=== PATIENT | female | born 1940 | race African-American/Black ===

== ENCOUNTER 2024-09-22 06:38 | Emergency (ER) | payer MEDICARE, OTHER ==
[~2024-09-22] VITALS: Ht 170.2 cm; Wt 60.0 kg
[~2024-09-22 06:38] MED LIST: ALEN70TA84 MT; AMLO5TAB88 MT; ASPI-1497 MT; ATEN-177 MT; ATOR10TA MT; FURO-152 MT; GABA-1180 MT; GLIP10TA17 MT; LEVO50TA MT; LOSA-412 MT; MELO-106 MT; METF-414 MT; POTA-81 MT
[2024-09-22 06:40] VITALS: O2SAT 98
[2024-09-22] MEDS: PIPERACILLIN/TAZO 3.375G/50ML 50 ML IV ONE (07:10)
[2024-09-22] MEDS: SODIUM CHLORIDE 0.9% (SEPSIS BOLUS) IV ONE (07:10)
[2024-09-22 07:32] LABS: BASOPHILS % 0.4 % (0.0-2.0); HEMATOCRIT. 31.6 % (36.0-48.0); LYMPHOCYTES % 9.9 % (20.0-50.0); MEAN CORPUSCULAR HEMOGLOBIN 26.1 pg (28.0-32.0); MEAN CORPUSCULAR HGB CONC 31.7 g/dL (31.0-37.0); MEAN CORPUSCULAR VOLUME 82.2 fL (81.0-99.0); MEAN PLATELET VOLUME 8.9 fl (7.4-10.4); MONOCYTES % 4.7 % (2.0-8.0); PLATELET 362 x1000/uL (130-400); RED BLOOD CELL COUNT 3.84 mill/uL (4.2-5.4); RED CELL DISTRIBUTION WIDTH 19.2 % (11.6-14.6); WHITE BLOOD COUNT 21.6 x1000/uL (4.5-11.0)
[2024-09-22 07:42] LABS: CHLORIDE 106 mEq/L (98-107); POTASSIUM 4.2 mEq/L (3.5-5.1); SODIUM 140 mEq/L (136-145)
[2024-09-22 07:43] LABS: CARBON DIOXIDE 26 mEq/L (21-32)
[2024-09-22 07:44] LABS: CALCIUM 8.9 mg/dL (8.7-10.4)
[2024-09-22 07:48] LABS: CREATININE 0.9 mg/dL (0.6-1.0); GLUCOSE 198 mg/dL (70-105)
[2024-09-22 07:49] LABS: TROPONIN I HIGH SENSITIVITY 5 ng/L (3.0-34); UREA NITROGEN BLOOD 15 mg/dL (9-23)
[2024-09-22 07:50] LABS: ALANINE AMINOTRANSFERASE 64 IU/L (10-49); ALBUMIN 3.8 g/dL (3.2-4.8); ASPARTATE AMINOTRANSFERASE 86 IU/L (<34); BILIRUBIN DIRECT 0.4 mg/dL (<=3.0)
[2024-09-22 07:51] LABS: BILIRUBIN TOTAL 1.3 mg/dL (0.1-1.0); PROTEIN TOTAL 6.7 g/dL (6.0-8.3)
[2024-09-22 07:56] LABS: INR 1.1; PROTHROMBIN TIME 12.5 sec (9.6-11.0)
[2024-09-22] MEDS: VANCOMYCIN 1G PREMIX 200 ML IV ONE (08:44)
[2024-09-22 13:32] VITALS: BP 170/80; PULSE 74; RESP 17; TEMP 36.9; O2SAT 99
== END 2024-09-22 14:26 | disposition short-term general hospital (02) ==
LOC: ER 06:38 → EDBEDREQ 12:12 → EDBEDREQTM 12:12 → EDBEDREQSVC 12:12 → ER 14:26
DX: J18.9 Pneumonia, unspecified organism (principal); A41.9 Sepsis, unspecified organism; E11.9 Type 2 diabetes mellitus without complications; E78.5 Hyperlipidemia, unspecified; I10 Essential (primary) hypertension; Z60.2 Problems related to living alone; Z79.1 Long term (current) use of non-steroidal anti-inflammatories (NSAID); Z79.82 Long term (current) use of aspirin; Z79.84 Long term (current) use of oral hypoglycemic drugs; Z79.890 Hormone replacement therapy; Z79.899 Other long term (current) drug therapy; Z88.5 Allergy status to narcotic agent; Z88.8 Allergy status to other drugs, medicaments and biological substances; Z98.890 Other specified postprocedural states; Z20.822 Contact with and (suspected) exposure to COVID-19
CPT/HCPCS: 99291; 96365; 71045; 96367; 96366; 87426; 80076; 80048; 83880; 83605; 85025; 85610; 87420; 87040; 84484; 87804 ×2; 36415; 84145; 93005; J2543; J3370; J7030

== ENCOUNTER 2025-04-20 15:43 | Emergency (ER) | payer OTHER ==
[~2025-04-20] VITALS: Ht 170.2 cm; Wt 60.0 kg
[2025-04-20 15:47] VITALS: TEMP 36.2; O2SAT 94
[2025-04-20] MEDS ORDERED: PROPOFOL 10MG/ML 100ML 100 ML IV SCH (16:00)
[2025-04-20] MEDS ORDERED: ACETAMINOPHEN 650MG/20.3ML UDC NG PRN (16:00)
[2025-04-20] MEDS ORDERED: PIPERACILLIN/TAZO 3.375G/50ML 50 ML IV ONE (16:00)
[2025-04-20] MEDS ORDERED: ACETAMINOPHEN 650MG SUPP PR PRN (16:00)
[2025-04-20] MEDS ORDERED: ETOMIDATE 2MG/ML 10ML VIAL IV ONE (16:00)
[2025-04-20] MEDS ORDERED: ROCURONIUM BROMIDE 10MG/ML VIAL 5ML IV ONE (16:00)
[2025-04-20] MEDS ORDERED: EPINEPHRINE 5 MG in SODIUM CHLORIDE 0.9% 245 ML IV SCH (16:00)
[2025-04-20] MEDS: SODIUM CHLORIDE 0.9% (SEPSIS BOLUS) IV ONE (16:09)
[2025-04-20 16:10] VITALS: RESP 14
[2025-04-20] MEDS: VANCOMYCIN 1G PREMIX 200 ML IV ONE (16:10)
[2025-04-20] MEDS ORDERED: NOREPINEPHRINE 8 MG in DEXT 5% WATER 242 ML IV ONE (16:30)
[2025-04-20] MEDS ORDERED: NOREPINEPHRINE 8MG/250ML PMX 250 ML IV ONE (16:31)
[2025-04-20] MEDS ORDERED: NOREPINEPHRINE 8MG/250ML PMX 250ML IV PRN (16:45)
[2025-04-20] MEDS ORDERED: PHENYLEPHRINE 50MG/250ML PMX IV PRN (16:45)
[2025-04-20] MEDS ORDERED: PHENYLEPHRINE 50 MG in DEXT 5% WATER 245 ML IV SCH (16:45)
[2025-04-20 16:52] VITALS: BP 0/0; PULSE 0; RESP 0; O2SAT 0
[2025-04-20 16:52] LABS: BASOPHILS % 0.6 % (0.0-2.0); EOSINOPHILS % 2.6 % (0.0-5.0); HEMATOCRIT. 31.5 % (36.0-48.0); HEMOGLOBIN. 9.0 g/dL (12.0-16.0); LYMPHOCYTES % 38.3 % (20.0-50.0); MEAN PLATELET VOLUME 8.7 fl (7.4-10.4); MONOCYTES % 9.6 % (2.0-8.0); NEUTROPHILS % 48.9 % (40.0-76.0); PLATELET 283 x1000/uL (130-400); RED BLOOD CELL COUNT 3.37 mill/uL (4.2-5.4); RED CELL DISTRIBUTION WIDTH 18.7 % (11.6-14.6)
[2025-04-20] MEDS ORDERED: CALCIUM GLUCONATE 1GM PREMIX 50 ML IV ONE (17:00)
[2025-04-20] MEDS ORDERED: SODIUM CHLORIDE 0.9% 1,000 ML IV ONE (17:00)
[2025-04-20] MEDS ORDERED: MAGNESIUM 2 G PREMIX 50 ML IV ONE (17:00)
[2025-04-20 17:09] LABS: TROPONIN I HIGH SENSITIVITY 11 ng/L (3.0-34)
[2025-04-20 17:10] LABS: UREA NITROGEN BLOOD 17 mg/dL (9-23)
[2025-04-20 17:11] LABS: ASPARTATE AMINOTRANSFERASE 122 IU/L (<34)
[2025-04-20 17:12] LABS: BILIRUBIN DIRECT 0.2 mg/dL (<=3.0); BILIRUBIN TOTAL 0.7 mg/dL (0.1-1.0); PHOSPHORUS 4.3 mg/dL (2.5-4.9); PROTEIN TOTAL 5.9 g/dL (6.0-8.3)
[2025-04-20 17:15] LABS: CREATININE 1.5 mg/dL (0.6-1.0)
== END 2025-04-20 16:52 ==
LOC: ER 15:43 → CANBEDREQ 17:07
DX: I46.9 Cardiac arrest, cause unspecified (principal); E11.9 Type 2 diabetes mellitus without complications; I11.0 Hypertensive heart disease with heart failure; Z79.899 Other long term (current) drug therapy; Z79.890 Hormone replacement therapy; Z88.5 Allergy status to narcotic agent; Z88.8 Allergy status to other drugs, medicaments and biological substances
CPT/HCPCS: 99291; 94070; 31500; 96360; 80076; 80048; 82962; 83880; 83690; 83735; 84100; 85025; 84484; 36415; 84145; 93005; 92950; J3490 ×3; J2543; J3373; J7060; J7050; J7030; 94002